=== PATIENT | male | born 1990 | race Caucasian/White ===

== ENCOUNTER 2016-12-01 12:26 | Emergency (ER) | payer SELFPAY ==
--- NOTE | 2016-12-01 15:28 | ED CLINICAL REPORT ---
Clinical Report - Physicians/Mid Levels [facility] [address] [place] [address] 12/01/2016 12:29 Patient: REAGAN PERES III Time Seen: 12:42; initial patient contact, initial documentation, patient care assumed. Arrived- By private vehicle. Historian- patient. HISTORY OF PRESENT ILLNESS Chief Complaint: SKIN RASH and TENDER AREA. This started about 2 days ago and is still present. Not itchy or burning. It is described as painful. It has been located on the right foot. A possible cause has been identified (iv drug user, but denies shooting up in that area). Similar symptoms previously: None. Recent medical care: Not recently seen/assessed. REVIEW OF SYSTEMS No fever, chills, difficulty breathing or joint pain. All systems otherwise negative, except as recorded above. PAST HISTORY Negative. SOCIAL HISTORY Light tobacco smoker. Occasional alcohol use. History of heavy IV drug use: heroin. Recently used drugs today. Under influence in ED. No recent travel. Is a local resident. FAMILY HISTORY Negative. ADDITIONAL NOTES The nursing notes have been reviewed with agreement regarding the chief complaint, HPI, ROS, PMH and patient medications and allergies. PHYSICAL EXAM Vital Signs: 12/01/2016 12:38 BP: 133/78. HR: 105. RR: 18. O2 saturation: 100%. Temp: 99 F. Pain level now: 8/10. Have been reviewed as abnormal and appear to be correct. Blood pressure normal. Tachycardic. Respiratory rate normal. Temperature normal. Oxygen saturation normal. Appearance: Alert. Oriented X3. No acute distress. Eyes: Pupils equal, round and reactive to light. Conjunctivae and eyelids normal. Neck: Neck supple. CVS: Heart rate / rhythm abnormal. Tachycardia (110). Heart sounds normal. Respiratory: No respiratory distress. Breath sounds normal. Chest nontender. Abdomen: Nontender. No organomegaly. Skin: Skin warm and dry. Abnormal skin color. No rash. Normal skin turgor. Medium area of cellulitis with tenderness, erythema and warmth to right ankle and right foot. No lymphangitis. Extremities: Normal external inspection. Extremities nontender. Neuro: Oriented X 3. No motor deficit. No sensory deficit. LABS, X-RAYS, AND EKG Laboratory Tests: CBC w Diff: (ANANTH: 12/01/2016 14:25) ( [facility] 12/01/2016 14:35) Final results Test Result Flag Units (Reference) WHITE BLOOD COUNT 9.0 K/uL (4.5-11.5) RED BLOOD COUNT 4.20 L M/uL (4.50-5.90) HEMOGLOBIN 11.6 L gm/dL (13.5-17.5) HEMATOCRIT 34.6 L % (41.0-53.0) MEAN CELL VOLUME 82 fL (80-100) MEAN CORPUSCULAR HGB 28 pg (26-34) MEAN CORPUSCULAR HGB CONC 34 g/dL (31-37) RED CELL DISTRIBUTION WIDTH 14.4 % (11.6-14.8) PLATELET COUNT 357 K/uL (150-400) NEUTROPHIL % 63.9 % (50-75) LYMPH % 26.8 % (25-40) MONO % 7.6 % (3-14) EOSINOPHIL % 1.4 % (0-4) BASOPHIL % 0.3 % (0-2) Lactate, Serum: (ANANTH: 12/01/2016 14:25) ( [facility] 12/01/2016 15:06) Final results Test Result Flag Units (Reference) LACTIC ACID 0.4 mmol/L (0.4-2.0) [id number]: (ANANTH: 12/01/2016 14:25) ( [facility] 12/01/2016 15:17) Final results Test Result Flag Units (Reference) PROCALCITONIN <0.5 ng/mL (0-0.5) PCT Concentration: Interpretation : Risk/option for action PCT <=0.5 ng/mL : Systemic : Low risk forinfection(sepsis): progression to severeis not likely. : systemic infection.Local bacterial : CAUTION-PCT levelsinfection is : below 0.5 ng/mL do notpossible. : exclude an infection,because localizedinfections (withoutsystemic signs) may beassociated with suchlow levels. If PCT ismeasured very earlyafter a bacterialchallenge (usually <6hours), these valuesmay still be low. Inthis case PCT shouldbe re-assessed 6-24hours later. PCT >0.5 and : Systemic infection: Moderate risk for<= 2 ng/mL : (sepsis) is : progression to severepossible, but : systemic infection.other conditions : The patient should beare known to : closely monitoredelevate PCT. : both clinically andby re-assessing PCTwithin 6-24 hours. PCT > 2 ng/mL : Systemic infection: High risk for(sepsis) is likely: progression to severeunless other : systemic infection.causes are known. : PCT >= 10 ng/mL : Important systemic: High likelihood ofinflammatory : severe sepsis orresponse, almost : septic shock.exclusively due to:severe bacterial :sepsis or septic :shock. : CMP: (ANANTH: 12/01/2016 14:25) ( MsgRcvd 12/01/2016 15:03) Final results Test Result Flag Units (Reference) GLUCOSE 94 mg/dL (70-110) BUN 12 mg/dL (7-18) CREATININE 0.8 mg/dL (0.6-1.3) Estimated GFR >60 mL/min Estimated GFR- >60 mL/min Note: Persistent reduction over 3 months in eGFR<60 mL/min/1.73 m2 defines CKD. Patients with eGFR values>=60 mL/min/1.73 m2 may also have CKD if evidence ofpersistent proteinuria. Additional information may be foundat www.kidney.org. SODIUM 139 mmol/L (136-145) POTASSIUM 3.9 mmol/L (3.5-5.1) CHLORIDE 101 mmol/L (98-107) CARBON DIOXIDE 28 mmol/L (21-32) CALCIUM 8.7 mg/dL (8.5-10.1) TOTAL PROTEIN 7.1 g/dL (6.4-8.2) ALBUMIN 3.6 g/dL (3.3-5.0) BILIRUBIN, TOTAL 0.5 mg/dL (0.0-1.0) ALKALINE PHOSPHATASE 68 U/L (46-116) AST (SGOT) 17 U/L (15-37) ALT (SGPT) 31 U/L (12-78) . PROGRESS AND PROCEDURES Venipuncture: Performed by me. Indication: physician procedure / others were unable to perform. Specimen obtained using an 22 gauge syringe; post-procedure pressure held by nurse and no bleeding present; specimen labeled in the presence of the patient and sent to lab. Arterial stick done, R Radial artery, + david test prior. Course of Care: nurses and lab having no success at iv or blood draw, at bedside, agreed to attempt arterial stick. Patient counseled in person regarding the patient's stable condition, test results and diagnosis. 15:22. Differential Diagnosis: Other possible considerations: cellulitis, abscess, mrsa, substance abuse, fungus. Above considerations are based on history and physical exam. Differential diagnosis was discussed with patient. Disposition: Discharged home in good and improved condition (15:28). Condition: good and stable. CLINICAL IMPRESSION Cellulitis of the right foot. Chronic substance abuse- heroin with intoxication. INSTRUCTIONS Warnings: GENERAL WARNINGS: Return or contact your physician immediately if your condition worsens or changes unexpectedly, if not improving as expected, or if other problems arise. Specifically return if problem worsens. Prescription Medications: Bactrim DS 800 mg / 160 mg: take 1 tablet orally every 12 hours for 10 days. No refill. Motrin 800 mg tablets: take 1 tablet orally every 8 hours as needed for pain. Dispense thirty (30). No refills. Substitution is permissible. Keflex 500 mg: take 1 capsule orally every 12 hours for 10 days. No refill. Follow-up: Follow up with your doctor in about two days even if well. Call for an appointment. Summary of care provided to patient. Understanding of the discharge instructions verbalized by patient. (Electronically signed by Merari Monaco A.R.N.P. 12/01/2016 17:33)
--- NOTE | 2016-12-01 15:28 | ED ORDER SUMMARY ---
..... Patient: REAGAN PERES III OrderSheet [facility] VisitID: [id number] [place] [address] 26y, M Registration Date/Time: 12/01/2016 ORDER SHEET Weight: 65.7 kg (stated) Allergies: No Known Drug Allergy GENERAL ORDERS: Blood Culture (No) (N/A) Urgent (13:53 12/01/2016 HBivens A.R.N.P.) (Ack 13:59 TBergley) (14:38 MWinterer R.N.) CBC w Diff Urgent (13:53 12/01/2016 HBivens A.R.N.P.) (Ack 13:59 TBergley) (14:38 MWinterer R.N.) CMP Urgent (13:53 12/01/2016 HBivens A.R.N.P.) (Ack 13:59 TBergley) (14:38 MWinterer R.N.) Lactate, Serum Urgent (13:53 12/01/2016 HBivens A.R.N.P.) (Ack 13:59 TBergley) (14:38 MWinterer R.N.) PCT (Procalcitonin) Urgent (13:53 12/01/2016 HBivens A.R.N.P.) (Ack 13:59 TBergley) (14:38 MWinterer R.N.) - (please jose alfredo area of erythema with skin pen) (15:29 12/01/2016 HBivens A.R.N.P.) (15:35 MWinterer R.N.) MEDICATION ORDERS: Toradol IM 60 mg (NOW) (15:21 12/01/2016 HBivens A.R.N.P.) (Ack 15:23 MWinterer R.N.) (15:35 MWinterer R.N.) Clindamycin IM 600 mg (NOW) (15:22 12/01/2016 HBivens A.R.N.P.) (Ack 15:23 MWinterer R.N.) (15:35 MWinterer R.N.) IV FLUIDS: IV Saline Lock (13:53 12/01/2016 HBivens A.R.N.P.) (Ack 13:55 MWinterer R.N.) (Cancelled: Other15:23 MWinterer R.N.) ORDER SHEET NOTES: [Electronically signed by Mervat White R.N. (17:08 12/01/2016)] [Electronically signed by Merari MonacoR.N.PAna (17:33 12/01/2016)] [Electronically locked/signed by Mervat White R.N. (17:08 12/01/2016)]
--- NOTE | 2016-12-01 15:28 | ED NURSING NOTES ---
Clinical Report - Nurses [facility] [address] [place] [address] 12/01/2016 12:29 Patient: REAGAN PERES III TRIAGE Acuity: LEVEL 3. Chief Complaint: RIGHT LOWER EXTREMITY PAIN, SWELLING and REDNESS. Alert. No acute distress. SEPSIS SCREEN: Sepsis Screen. Negative (no infection suspected/documented). --12:42 Mervat White R.N. 12:38 12/01/16. BP: 133/78. HR: 105. RR: 18. O2 saturation: 100% on room air. Temp: 99 F (oral). Pain level now: 8. --12:42 Mervat White R.N. Weight: 65.7 kg stated. Height/Length: 67 inches Per Patient. BMI: 22.7. --12:42 Mervat White R.N. Medications None. --12:38 Mervat White R.N. Medication/allergy information source: the patient. --12:42 Mervat White R.N. Allergies No Known Drug Allergy. --12:38 Mervat White R.N. History Arrived by private vehicle. Historian: patient. Accompanied by mother. Primary physician (none). No injury occurred. This occurred (2 days ago). He has had trouble walking. 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 PAST MEDICAL HX: Immunizations: up-to-date. SOCIAL HX: Current every day light tobacco smoker (cigarette)- less than 1/2 a pack per day. History of drug use: heroin. Recently used drugs just prior to arrival. No alcohol use. FALL RISK ASSESSMENT: Fall risk assessment completed. No fall risk identified. NUTRITIONAL RISK ASSESSMENT: The nutritional risk assessment revealed no deficiencies. FUNCTIONAL ASSESSMENT: Functional assessment: no impairments noted. LEARNING NEEDS ASSESSMENT: The learning needs assessment revealed no barriers. SKIN INTEGRITY ASSESSMENT: Skin integrity risk assessment completed. No skin integrity risk identified. --12:42 Mervat White R.N. Assessment GENERAL / NEURO / PSYCH: Alert. Oriented X 4. Appears in no acute distress. [place] Scale: 15- eyes open spontaneously (4); best verbal response- oriented x 4 (5); best motor response- obeys commands (6). Patient appears calm and cooperative. CVS: Capillary refill less than 2 seconds. GI / : Abdomen nontender. SKIN: Mucous membranes are pink. Skin is warm and dry. --12:42 Mervat White R.N. Interventions ID band on patient. To treatment room. --12:42 Mervat White R.N. NURSING PROGRESS NOTES Patient gowned. Two patient identifiers checked. Call light placed in reach. Side rails up x 1. Bed placed in lowest position. Brakes of bed on. Patient ready for evaluation- chart flagged and ED physician and BUTCHER'S ASSISTANT notified. --12:42 Mervat White R.N. 13:58 12/01/16. ( Multiple unsuccessful IV start attempts by two RNs, including US attempts. BUTCHER'S ASSISTANT notified. Will have lab draw labs.). --13:58 Mervat White R.N. 13:58 12/01/16. The patient reports no complaints and he is calm and resting quietly. --13:58 Mervat White R.N. 14:42 12/01/16. BP: 111/64. HR: 98. RR: 16. O2 saturation: 100%. Temp: 98.7 F (oral). --14:43 Mervat White R.N. 14:43 12/01/16. The patient reports no complaints and he is calm and resting quietly. --14:43 Mervat White R.N. 15:35 12/01/2016 Toradol (Ketorolac Tromethamine) IM 60 mg given. Given in the right gluteus kathy. Allergies verified and confirmed 5 rights. --15:35 Mervat White R.N. 15:35 12/01/2016 Clindamycin IM 600 mg given. Given in the right anterior lateral thigh and left gluteus kathy (split dose). Allergies verified and confirmed 5 rights. --15:35 Mervat White R.N. DISPOSITION / DISCHARGE 15:35 04/15/17. BP: 124/83. HR: 101. RR: 12. O2 saturation: 100%. Temp: 98.7 F (oral). Pain level now: 11/26. --15:36 Mervat White R.N. Departure time: 15:40 Dec 01 2016. Condition at departure: improved and stable. No learning barriers present. Discharge instructions provided and reviewed with the patient. Reviewed medication(s) side effects, precautions and dosing information. Prescription(s) given to the patient. Patient and parent verbalized understanding. Written instructions provided in Algerian. The patient was discharged by the nurse practitioner. He was discharged home and accompanied by parent. He left the Emergency Department ambulatory and via private vehicle. Parent driving. --17:07 Mervat White R.N. Reviewed skin care instructions. --17:08 Mervat White R.N. Locked/Released at 12/01/2016 17:08 by Mervat White R.N.
--- NOTE | 2016-12-01 15:28 | ED CLINICAL REPORT ---
Clinical Report - Physicians/Mid Levels [facility] [address] [place] [address] 12/01/2016 12:29 Patient: REAGAN PERES III Time Seen: 12:42; initial patient contact, initial documentation, patient care assumed. Arrived- By private vehicle. Historian- patient. HISTORY OF PRESENT ILLNESS Chief Complaint: SKIN RASH and TENDER AREA. This started about 2 days ago and is still present. Not itchy or burning. It is described as painful. It has been located on the right foot. A possible cause has been identified (iv drug user, but denies shooting up in that area). Similar symptoms previously: None. Recent medical care: Not recently seen/assessed. REVIEW OF SYSTEMS No fever, chills, difficulty breathing or joint pain. All systems otherwise negative, except as recorded above. PAST HISTORY Negative. SOCIAL HISTORY Light tobacco smoker. Occasional alcohol use. History of heavy IV drug use: heroin. Recently used drugs today. Under influence in ED. No recent travel. Is a local resident. FAMILY HISTORY Negative. ADDITIONAL NOTES The nursing notes have been reviewed with agreement regarding the chief complaint, HPI, ROS, PMH and patient medications and allergies. PHYSICAL EXAM Vital Signs: 12/01/2016 12:38 BP: 133/78. HR: 105. RR: 18. O2 saturation: 100%. Temp: 99 F. Pain level now: 8/10. Have been reviewed as abnormal and appear to be correct. Blood pressure normal. Tachycardic. Respiratory rate normal. Temperature normal. Oxygen saturation normal. Appearance: Alert. Oriented X3. No acute distress. Eyes: Pupils equal, round and reactive to light. Conjunctivae and eyelids normal. Neck: Neck supple. CVS: Heart rate / rhythm abnormal. Tachycardia (110). Heart sounds normal. Respiratory: No respiratory distress. Breath sounds normal. Chest nontender. Abdomen: Nontender. No organomegaly. Skin: Skin warm and dry. Abnormal skin color. No rash. Normal skin turgor. Medium area of cellulitis with tenderness, erythema and warmth to right ankle and right foot. No lymphangitis. Extremities: Normal external inspection. Extremities nontender. Neuro: Oriented X 3. No motor deficit. No sensory deficit. LABS, X-RAYS, AND EKG Laboratory Tests: CBC w Diff: (ANANTH: 12/01/2016 14:25) ( [facility] 12/01/2016 14:35) Final results Test Result Flag Units (Reference) WHITE BLOOD COUNT 9.0 K/uL (4.5-11.5) RED BLOOD COUNT 4.20 L M/uL (4.50-5.90) HEMOGLOBIN 11.6 L gm/dL (13.5-17.5) HEMATOCRIT 34.6 L % (41.0-53.0) MEAN CELL VOLUME 82 fL (80-100) MEAN CORPUSCULAR HGB 28 pg (26-34) MEAN CORPUSCULAR HGB CONC 34 g/dL (31-37) RED CELL DISTRIBUTION WIDTH 14.4 % (11.6-14.8) PLATELET COUNT 357 K/uL (150-400) NEUTROPHIL % 63.9 % (50-75) LYMPH % 26.8 % (25-40) MONO % 7.6 % (3-14) EOSINOPHIL % 1.4 % (0-4) BASOPHIL % 0.3 % (0-2) Lactate, Serum: (ANANTH: 12/01/2016 14:25) ( [facility] 12/01/2016 15:06) Final results Test Result Flag Units (Reference) LACTIC ACID 0.4 mmol/L (0.4-2.0) [id number]: (ANANTH: 12/01/2016 14:25) ( [facility] 12/01/2016 15:17) Final results Test Result Flag Units (Reference) PROCALCITONIN <0.5 ng/mL (0-0.5) PCT Concentration: Interpretation : Risk/option for action PCT <=0.5 ng/mL : Systemic : Low risk forinfection(sepsis): progression to severeis not likely. : systemic infection.Local bacterial : CAUTION-PCT levelsinfection is : below 0.5 ng/mL do notpossible. : exclude an infection,because localizedinfections (withoutsystemic signs) may beassociated with suchlow levels. If PCT ismeasured very earlyafter a bacterialchallenge (usually <6hours), these valuesmay still be low. Inthis case PCT shouldbe re-assessed 6-24hours later. PCT >0.5 and : Systemic infection: Moderate risk for<= 2 ng/mL : (sepsis) is : progression to severepossible, but : systemic infection.other conditions : The patient should beare known to : closely monitoredelevate PCT. : both clinically andby re-assessing PCTwithin 6-24 hours. PCT > 2 ng/mL : Systemic infection: High risk for(sepsis) is likely: progression to severeunless other : systemic infection.causes are known. : PCT >= 10 ng/mL : Important systemic: High likelihood ofinflammatory : severe sepsis orresponse, almost : septic shock.exclusively due to:severe bacterial :sepsis or septic :shock. : CMP: (ANANTH: 12/01/2016 14:25) ( MsgRcvd 12/01/2016 15:03) Final results Test Result Flag Units (Reference) GLUCOSE 94 mg/dL (70-110) BUN 12 mg/dL (7-18) CREATININE 0.8 mg/dL (0.6-1.3) Estimated GFR >60 mL/min Estimated GFR- >60 mL/min Note: Persistent reduction over 3 months in eGFR<60 mL/min/1.73 m2 defines CKD. Patients with eGFR values>=60 mL/min/1.73 m2 may also have CKD if evidence ofpersistent proteinuria. Additional information may be foundat www.kidney.org. SODIUM 139 mmol/L (136-145) POTASSIUM 3.9 mmol/L (3.5-5.1) CHLORIDE 101 mmol/L (98-107) CARBON DIOXIDE 28 mmol/L (21-32) CALCIUM 8.7 mg/dL (8.5-10.1) TOTAL PROTEIN 7.1 g/dL (6.4-8.2) ALBUMIN 3.6 g/dL (3.3-5.0) BILIRUBIN, TOTAL 0.5 mg/dL (0.0-1.0) ALKALINE PHOSPHATASE 68 U/L (46-116) AST (SGOT) 17 U/L (15-37) ALT (SGPT) 31 U/L (12-78) . PROGRESS AND PROCEDURES Venipuncture: Performed by me. Indication: physician procedure / others were unable to perform. Specimen obtained using an 22 gauge syringe; post-procedure pressure held by nurse and no bleeding present; specimen labeled in the presence of the patient and sent to lab. Arterial stick done, R Radial artery, + david test prior. Course of Care: nurses and lab having no success at iv or blood draw, at bedside, agreed to attempt arterial stick. Patient counseled in person regarding the patient's stable condition, test results and diagnosis. 15:22. Differential Diagnosis: Other possible considerations: cellulitis, abscess, mrsa, substance abuse, fungus. Above considerations are based on history and physical exam. Differential diagnosis was discussed with patient. Disposition: Discharged home in good and improved condition (15:28). Condition: good and stable. CLINICAL IMPRESSION Cellulitis of the right foot. Chronic substance abuse- heroin with intoxication. INSTRUCTIONS Warnings: GENERAL WARNINGS: Return or contact your physician immediately if your condition worsens or changes unexpectedly, if not improving as expected, or if other problems arise. Specifically return if problem worsens. Prescription Medications: Bactrim DS 800 mg / 160 mg: take 1 tablet orally every 12 hours for 10 days. No refill. Motrin 800 mg tablets: take 1 tablet orally every 8 hours as needed for pain. Dispense thirty (30). No refills. Substitution is permissible. Keflex 500 mg: take 1 capsule orally every 12 hours for 10 days. No refill. Follow-up: Follow up with your doctor in about two days even if well. Call for an appointment. Summary of care provided to patient. Understanding of the discharge instructions verbalized by patient. (Electronically signed by Merari Monaco A.R.N.P. 12/01/2016 17:33)
--- NOTE | 2016-12-01 15:28 | ED ORDER SUMMARY ---
..... Patient: REAGAN PERES III OrderSheet [facility] VisitID: [id number] [place] [address] 26y, M Registration Date/Time: 12/01/2016 ORDER SHEET Weight: 65.7 kg (stated) Allergies: No Known Drug Allergy GENERAL ORDERS: Blood Culture (No) (N/A) Urgent (13:53 12/01/2016 HBivens A.R.N.P.) (Ack 13:59 TBergley) (14:38 MWinterer R.N.) CBC w Diff Urgent (13:53 12/01/2016 HBivens A.R.N.P.) (Ack 13:59 TBergley) (14:38 MWinterer R.N.) CMP Urgent (13:53 12/01/2016 HBivens A.R.N.P.) (Ack 13:59 TBergley) (14:38 MWinterer R.N.) Lactate, Serum Urgent (13:53 12/01/2016 HBivens A.R.N.P.) (Ack 13:59 TBergley) (14:38 MWinterer R.N.) PCT (Procalcitonin) Urgent (13:53 12/01/2016 HBivens A.R.N.P.) (Ack 13:59 TBergley) (14:38 MWinterer R.N.) - (please jose alfredo area of erythema with skin pen) (15:29 12/01/2016 HBivens A.R.N.P.) (15:35 MWinterer R.N.) MEDICATION ORDERS: Toradol IM 60 mg (NOW) (15:21 12/01/2016 HBivens A.R.N.P.) (Ack 15:23 MWinterer R.N.) (15:35 MWinterer R.N.) Clindamycin IM 600 mg (NOW) (15:22 12/01/2016 HBivens A.R.N.P.) (Ack 15:23 MWinterer R.N.) (15:35 MWinterer R.N.) IV FLUIDS: IV Saline Lock (13:53 12/01/2016 HBivens A.R.N.P.) (Ack 13:55 MWinterer R.N.) (Cancelled: Other15:23 MWinterer R.N.) ORDER SHEET NOTES: [Electronically signed by Mervat White R.N. (17:08 12/01/2016)] [Electronically signed by Merari MonacoR.N.PAna (17:33 12/01/2016)] [Electronically locked/signed by Mervat White R.N. (17:08 12/01/2016)]
--- NOTE | 2016-12-01 15:28 | ED NURSING NOTES ---
Clinical Report - Nurses [facility] [address] [place] [address] 12/01/2016 12:29 Patient: REAGAN PERES III TRIAGE Acuity: LEVEL 3. Chief Complaint: RIGHT LOWER EXTREMITY PAIN, SWELLING and REDNESS. Alert. No acute distress. SEPSIS SCREEN: Sepsis Screen. Negative (no infection suspected/documented). --12:42 Mervat White R.N. 12:38 12/01/16. BP: 133/78. HR: 105. RR: 18. O2 saturation: 100% on room air. Temp: 99 F (oral). Pain level now: 8. --12:42 Mervat White R.N. Weight: 65.7 kg stated. Height/Length: 67 inches Per Patient. BMI: 22.7. --12:42 Mervat White R.N. Medications None. --12:38 Mervat White R.N. Medication/allergy information source: the patient. --12:42 Mervat White R.N. Allergies No Known Drug Allergy. --12:38 Mervat White R.N. History Arrived by private vehicle. Historian: patient. Accompanied by mother. Primary physician (none). No injury occurred. This occurred (2 days ago). He has had trouble walking. Treatment [employer]: Took Benadryl. PAST MEDICAL HX: Immunizations: up-to-date. SOCIAL HX: Current every day light tobacco smoker (cigarette)- less than 1/2 a pack per day. History of drug use: heroin. Recently used drugs just prior to arrival. No alcohol use. FALL RISK ASSESSMENT: Fall risk assessment completed. No fall risk identified. NUTRITIONAL RISK ASSESSMENT: The nutritional risk assessment revealed no deficiencies. FUNCTIONAL ASSESSMENT: Functional assessment: no impairments noted. LEARNING NEEDS ASSESSMENT: The learning needs assessment revealed no barriers. SKIN INTEGRITY ASSESSMENT: Skin integrity risk assessment completed. No skin integrity risk identified. --12:42 Mervat White R.N. Assessment GENERAL / NEURO / PSYCH: Alert. Oriented X 4. Appears in no acute distress. [place] Coma Scale: 15- eyes open spontaneously (4); best verbal response- oriented x 4 (5); best motor response- obeys commands (6). Patient appears calm and cooperative. CVS: Capillary refill less than 2 seconds. GI / : Abdomen nontender. SKIN: Mucous membranes are pink. Skin is warm and dry. --12:42 Mervat White R.N. Interventions ID band on patient. To treatment room. --12:42 Mervat White R.N. NURSING PROGRESS NOTES Patient gowned. Two patient identifiers checked. Call light placed in reach. Side rails up x 1. Bed placed in lowest position. Brakes of bed on. Patient ready for evaluation- chart flagged and ED physician and CYTOLOGIST notified. --12:42 Mervat White R.N. 13:58 12/01/16. ( Multiple unsuccessful IV start attempts by two RNs, including US attempts. CYTOLOGIST notified. Will have lab draw labs.). --13:58 Mervat White R.N. 13:58 12/01/16. The patient reports no complaints and he is calm and resting quietly. --13:58 Mervat White R.N. 14:42 12/01/16. BP: 111/64. HR: 98. RR: 16. O2 saturation: 100%. Temp: 98.7 F (oral). --14:43 Mervat White R.N. 14:43 12/01/16. The patient reports no complaints and he is calm and resting quietly. --14:43 Mervat White R.N. 15:35 12/01/2016 Toradol (Ketorolac Tromethamine) IM 60 mg given. Given in the right gluteus kathy. Allergies verified and confirmed 5 rights. --15:35 Mervat White R.N. 15:35 12/01/2016 Clindamycin IM 600 mg given. Given in the right anterior lateral thigh and left gluteus kathy (split dose). Allergies verified and confirmed 5 rights. --15:35 Mervat White R.N. DISPOSITION / DISCHARGE 15:35 04/15/17. BP: 124/83. HR: 101. RR: 12. O2 saturation: 100%. Temp: 98.7 F (oral). Pain level now: 11/26. --15:36 Mervat White R.N. Departure time: 15:40 Dec 01 2016. Condition at departure: improved and stable. No learning barriers present. Discharge instructions provided and reviewed with the patient. Reviewed medication(s) side effects, precautions and dosing information. Prescription(s) given to the patient. Patient and parent verbalized understanding. Written instructions provided in [place]. The patient was discharged by the nurse practitioner. He was discharged home and accompanied by parent. He left the Emergency Department ambulatory and via private vehicle. Parent driving. --17:07 Mervat White R.N. Reviewed skin care instructions. --17:08 Mervat White R.N. Locked/Released at 12/01/2016 17:08 by Mervat White R.N.
--- NOTE | 2016-12-01 17:33 | ED MAR SUMMARY ---
..... Medication Administration Record [facility] [address] [address] Patient: REAGAN PERES Visit ID: [id number] 26y, M Weight: 65.7 kg Height/Length: 67 in BMI: 22.7 ALLERGIES: No Known Drug Allergy Given 15:12/01/2016 Mervat White, R.N. Medication Administered: TORADOL [IM] (KETOROLAC TROMETHAMINE), Dose: 60 mg IM. Medication Ordered: Toradol IM 60 mg (NOW). Given 15:12/01/2016 Mervat White, R.N. Medication Administered: CLINDAMYCIN [IM], Dose: 600 mg IM. Medication Ordered: Clindamycin IM 600 mg (NOW).
--- NOTE | 2016-12-01 17:33 | ED MED RECONCILIATION SUMMARY ---
Patient: REAGAN PERES III Medication Reconciliation Report [facility] VisitID: [id number] [place] [address] 26y, M Registration Date/Time: 12/01/2016 Weight: 65.7 kg Height/Length: 67 in. BMI: 22.7 ALLERGIES: No Known Drug Allergy The patient's Home Medications are listed below: NONE. The source(s) of the original Home Medication information: patient The following Medications were given to the patient in the Emergency Department: Toradol [IM] IM 60 mg, administered: 12/01/2016 3:35:00 PM Clindamycin [IM] IM 600 mg, administered: 12/01/2016 3:35:00 PM The following Medications were prescribed to the patient: Bactrim DS 800 mg / 160 mg: take 1 tablet orally every 12 hours for 10 days. No refill. -- Merari Monaco A.R.N.P. Motrin 800 mg tablets: take 1 tablet orally every 8 hours as needed for pain. Dispense thirty (30). No refills. Substitution is permissible. -- Merari Monaco A.R.N.P. Keflex 500 mg: take 1 capsule orally every 12 hours for 10 days. No refill. -- Merari Monaco A.R.N.P.
--- NOTE | 2016-12-01 17:33 | ED DISCHARGE INSTRUCTIONS ---
Patient: REAGAN PERES III General Instructions [facility] VisitID: [id number] [place] [address] 26y, M Registration Date/Time: 12/01/2016 Cellulitis of the right foot. Chronic substance abuse- heroin with intoxication. INSTRUCTIONS Warnings: GENERAL WARNINGS: Return or contact your physician immediately if your condition worsens or changes unexpectedly, if not improving as expected, or if other problems arise. Specifically return if problem worsens. Prescription Medications: Bactrim DS 800 mg / 160 mg: take 1 tablet orally every 12 hours for 10 days. No refill. Motrin 800 mg tablets: take 1 tablet orally every 8 hours as needed for pain. Dispense thirty (30). No refills. Substitution is permissible. Keflex 500 mg: take 1 capsule orally every 12 hours for 10 days. No refill. Follow-up: Follow up with your doctor in about two days even if well. Call for an appointment. Summary of care provided to patient. Understanding of the discharge instructions verbalized by patient. ADDITIONAL INFORMATION Cellulitis You have an infection of the skin known as cellulitis. This usually starts with a scrape, cut, insect bite, blister or other opening in the skin which becomes infected. This is a serious condition. It must be watched closely to be sure the infection is not spreading. With antibiotic treatment, the size of the red area will gradually shrink in size until the skin returns to normal. This will take 7-10 days. The red area should never increase in size once the antibiotic medicine has been started. Occasionally, an infection will be resistant to one antibiotic and another one will have to be used. Home Care: 1) Limit the use of the affected part, since excess movement can cause the infection to spread. 2) If the infection is on your leg, walk as little as possible during the first few days of the treatment. Keep your leg elevated while sitting. This will reduce swelling. 3) Take all of the antibiotic medicine exactly as directed until it is gone. Be careful not to miss any doses, especially during the first seven days. Follow Up with your doctor or this facility as directed. Check the infected area daily for the warning signs listed below. Get Prompt Medical Attention if any of the following occur: -- Spreading area of redness -- Increasing swelling or pain -- Appearance of pus or drainage -- Fever over 100.4 F (38.0 C) oral, or over 101.4 F (38.6 C) rectal, after two days on antibiotics Staph Infection (MRSA) "Staph" is the short name for the common bacteria called "staphylococcus aureus". Staph bacteria are often present on the skin without causing an infection. If it gets under the skin an infection occurs. This causes redness, tenderness, swelling and sometimes fluid drainage. MRSA stands for "Methicillin-Resistant Staph Aureus". Unlike a common staph infection, MRSA bacteria are resistant to the usual antibiotics and harder to treat. Also, MRSA is more toxic than common staph bacteria. It can spread quickly throughout the body and cause a life-threatening illness. MRSA is spread to others by direct physical contact with the bacteria. MRSA can also be transmitted from items contaminated by a person who has the bacteria, such as bandages, towels, bed sheets, or sports equipment. It is not spread through the air. Once you have a MRSA skin infection, you are at risk of having it recur in the future. If MRSA infection is suspected, the doctor may take a wound culture to confirm the diagnosis. Any abscess will be drained. One or sometimes two antibiotics that work against MRSA will be prescribed. Home Care: 1) Take any antibiotics prescribed exactly as directed until they are gone. 2) Follow the same washing procedures as outlined for Household Members below. 3) Keep draining wounds covered with clean, dry bandages. Change dressings as they become soiled. 4) You and those in contact with you should wash their hands frequently with soap and warm water or use an alcohol-based hand medical scientist. Do this after each time you change the bandage or touch the wound. 5) Avoid sharing personal items such as towels, washcloths, razors, clothing, or uniforms. Wash soiled sheets, towels or clothes in hot water with laundry detergent. Use an automatic clothes dryer set on high to kill any remaining bacteria. 6) Remove any artificial nails and nail romansh. 7) If you use a gym, wipe down equipment before and after each use. Treatment Of Household Members If you have been diagnosed with possible MRSA infection, those living with you are at higher risk of carrying the bacteria on their skin or in their nose, even if there is no sign of infection. Bacteria must be removed from the skin of all household members (including you) at the same time, so that it is not passed back and forth. Advise them to remove the bacteria as follows: Wash your whole body (scalp to toes) daily for five days with Hibiclens (chlorhexidine). Scrub fingernails with a brush for one minute twice a day. If any skin infections are present (boils, abscess, infected cut) these must be treated by a doctor. Washing alone will not treat a MRSA infection. Clean counter tops and children's toys; do not share personal items such as toothbrush and razors. It is okay to share glasses, plates, utensils. If antibiotic ointment was prescribed use it as directed. Follow Up with your doctor or as advised by our staff. If a wound culture was taken, call as directed in two days to obtain the results. If the culture result is positive for MRSA, tell medical personnel in the future that you were treated for this type of infection. Get Prompt Medical Attention if any of the following occur: -- Increasing redness, swelling or pain -- Red streaks in the skin around the wound -- Weakness or dizziness -- New appearance of pus or drainage from the wound -- New fever over 100.4 F (38.0 C) Drug Abuse Use and abuse of such drugs as marijuana, amphetamines (speed, crank), cocaine, heroin or prescription pain medicines (Vicodin, codeine), sedatives and sleeping pills (Valium, Klonopin), PCP, mescaline and LSD may lead to addiction or dependence. Once this occurs, you are at greater risk for any of the following: Craving for the drug and unable to stop using the drug even though you think you want to stop (psychological dependence) Drug withdrawal symptoms if you stop taking the drug (physical dependence) Loss of your job or your family Arrest, conviction and fci sentence for possession of an illegal substance or for driving under the influence of such a substance Accidental injuries to yourself or others while you are under the influence of the drug (in a car or at home). HIV infection (much greater risk if you use IV drugs) Other sexually transmitted diseases (herpes, chlamydia, gonorrhea and others) Severe and fatal infection of the heart valves (if you use IV drugs) Stroke, heart attack, hepatitis B or C, kidney failure from overdose Home Care: Admit you have a drug problem. Ask for help from your family and close friends. Seek professional help. This could be in the form of individual psychotherapy or counseling or an outpatient, inpatient, or residential drug treatment program. Join a self-help group for drug abuse. Avoid friends who abuse drugs themselves or tempt you to continue abusing drugs. Eat a balanced diet and begin a regular exercise program. Follow Up with your doctor or as advised by our staff. Contact one of the resources below for help. National [place] on Alcoholism and Drug Dependence www.ncadd.org 088-221-DSVG Narcotics Anonymous www.I-lighting.org 448-253-5199 [employer] Alcohol and Substance Abuse Information Center (for referral to treatment programs) www.[employer] 284-999-7275 Get Prompt Medical Attention if any of the following occur: Agitation, anxiety, unable to sleep Unintended weight loss (more than 10 to 15 pounds over 3 months) Seizure Chest pain Fever of 100.4F (38C) or higher, or as directed by your healthcare provider Excess drowsiness or inability to be awakened Shortness of breath Slow breathing under 8 breaths per minute Cough with colored sputum Redness, swelling or tenderness at an injection site Sulfamethoxazole, Trimethoprim Oral tablet What is this medicine? SULFAMETHOXAZOLE; TRIMETHOPRIM or SMX-TMP (suhl fuh meth OK arvin zohl; trye METH oh prim) is a combination of a sulfonamide antibiotic and a second antibiotic, trimethoprim. It is used to treat or prevent certain kinds of bacterial infections. It will not work for colds, flu, or other viral infections. How should I use this medicine? Take this medicine by mouth with a full glass of water. Follow the directions on the prescription label. Take your medicine at regular intervals. Do not take it more often than directed. Do not skip doses or stop your medicine early. Talk to your workers compensation claims examiner regarding the use of this medicine in children. Special care may be needed. This medicine has been used in children as young as 2 months of age. What side effects may I notice from receiving this medicine? Side effects that you should report to your doctor or health patient care representative as soon as possible: allergic reactions like skin rash or hives, swelling of the face, lips, or tongue breathing problems fever or chills, sore throat irregular heartbeat, chest pain joint or muscle pain pain or difficulty passing urine red pinpoint spots on skin redness, blistering, peeling or loosening of the skin, including inside the mouth unusual bleeding or bruising unusually weak or tired yellowing of the eyes or skin Side effects that usually do not require medical attention (report to your doctor or health patient care representative if they continue or are bothersome): diarrhea dizziness headache loss of appetite nausea, vomiting nervousness What may interact with this medicine? Do not take this medicine with any of the following medications: aminobenzoate potassium dofetilide metronidazole This medicine may also interact with the following medications: SAUL inhibitors like benazepril, enalapril, lisinopril, and ramipril cyclosporine digoxin diuretics indomethacin medicines for diabetes methenamine methotrexate phenytoin potassium supplements pyrimethamine sulfinpyrazone tricyclic antidepressants warfarin What if I miss a dose? If you miss a dose, take it as soon as you can. If it is almost time for your next dose, take only that dose. Do not take double or extra doses. Where should I keep my medicine? Keep out of the reach of children. Store at room temperature between 20 to 25 degrees C (68 to 77 degrees F). Protect from light. Throw away any unused medicine after the expiration date. What should I tell my health care provider before I take this medicine? They need to know if you have any of these conditions: anemia asthma being treated with anticonvulsants if you frequently drink alcohol containing drinks kidney disease liver disease low level of folic acid or [id number] dehydrogenase poor nutrition or malabsorption porphyria severe allergies thyroid disorder an unusual or allergic reaction to sulfamethoxazole, trimethoprim, sulfa drugs, other medicines, foods, dyes, or preservatives or trying to get breast-feeding What should I watch for while using this medicine? Tell your doctor or health patient care representative if your symptoms do not improve. Drink several glasses of water a day to reduce the risk of kidney problems. Do not treat diarrhea with over the counter products. Contact your doctor if you have diarrhea that lasts more than 2 days or if it is severe and watery. This medicine can make you more sensitive to the sun. Keep out of the sun. If you cannot avoid being in the sun, wear protective clothing and use a sunscreen. Do not use sun lamps or tanning beds/booths. Ibuprofen Oral tablet What is this medicine? IBUPROFEN (eye BYOO proe fen) is a non-steroidal anti-inflammatory drug (NSAID). It is used for dental pain, fever, headaches or migraines, osteoarthritis, rheumatoid arthritis, or painful monthly periods. It can also relieve minor aches and pains caused by a cold, flu, or sore throat. How should I use this medicine? Take this medicine by mouth with a glass of water. Follow the directions on the prescription label. Take this medicine with food if your stomach gets upset. Try to not lie down for at least 10 minutes after you take the medicine. Take your medicine at regular intervals. Do not take your medicine more often than directed. A special MedGuide will be given to you by the pharmacist with each prescription and refill. Be sure to read this information carefully each time. Talk to your workers compensation claims examiner regarding the use of this medicine in children. Special care may be needed. What side effects may I notice from receiving this medicine? Side effects that you should report to your doctor or health patient care representative as soon as possible: allergic reactions like skin rash, itching or hives, swelling of the face, lips, or tongue black or bloody stools, blood in the urine or in vomit breathing problems changes in vision chest pain general ill feeling or flu-like symptoms nausea or vomiting redness, blistering, peeling or loosening of the skin, including inside the mouth slurred speech or weakness on one side of the body stomach pain unexplained weight gain or swelling unusually weak or tired yellowing of eyes or skin Side effects that usually do not require medical attention (report to your doctor or health patient care representative if they continue or are bothersome): constipation or diarrhea dizziness gas or heartburn stomach upset What may interact with this medicine? Do not take this medicine with any of the following medications: cidofovir ketorolac methotrexate pemetrexed This medicine may also interact with the following medications: alcohol aspirin diuretics lithium other drugs for inflammation like prednisone warfarin What if I miss a dose? If you miss a dose, take it as soon as you can. If it is almost time for your next dose, take only that dose. Do not take double or extra doses. Where should I keep my medicine? Keep out of the reach of children. Store at room temperature between 15 and 30 degrees C (59 and 86 degrees F). Keep container tightly closed. Throw away any unused medicine after the expiration date. What should I tell my health care provider before I take this medicine? They need to know if you have any of these conditions: asthma cigarette smoker drink more than 3 alcohol containing drinks a day heart disease or circulation problems such as heart failure or leg edema (fluid retention) high blood pressure kidney disease liver disease stomach bleeding or ulcers an unusual or allergic reaction to ibuprofen, aspirin, other NSAIDS, other medicines, foods, dyes, or preservatives or trying to get breast-feeding What should I watch for while using this medicine? Tell your doctor or healthcare professional if your symptoms do not start to get better or if they get worse. This medicine does not prevent heart attack or stroke. In fact, this medicine may increase the chance of a heart attack or stroke. The chance may increase with longer use of this medicine and in people who have heart disease. If you take aspirin to prevent heart attack or stroke, talk with your doctor or health patient care representative. Do not take other medicines that contain aspirin, ibuprofen, or naproxen with this medicine. Side effects such as stomach upset, nausea, or ulcers may be more likely to occur. Many medicines available without a prescription should not be taken with this medicine. This medicine can cause ulcers and bleeding in the stomach and intestines at any time during treatment. Ulcers and bleeding can happen without warning symptoms and can cause . To reduce your risk, do not smoke cigarettes or drink alcohol while you are taking this medicine. You may get drowsy or dizzy. Do not drive, use machinery, or do anything that needs mental alertness until you know how this medicine affects you. Do not stand or sit up quickly, especially if you are an older patient. This reduces the risk of dizzy or fainting spells. This medicine can cause you to bleed more easily. Try to avoid damage to your teeth and gums when you brush or floss your teeth. Cephalexin Monohydrate Oral tablet What is this medicine? CEPHALEXIN (sef a CELESTINA in) is a cephalosporin antibiotic. It is used to treat certain kinds of bacterial infections It will not work for colds, flu, or other viral infections. How should I use this medicine? Take this medicine by mouth with a full glass of water. Follow the directions on the prescription label. This medicine can be taken with or without food. Take your medicine at regular intervals. Do not take your medicine more often than directed. Take all of your medicine as directed even if you think you are better. Do not skip doses or stop your medicine early. Talk to your workers compensation claims examiner regarding the use of this medicine in children. While this drug may be prescribed for selected conditions, precautions do apply. What side effects may I notice from receiving this medicine? Side effects that you should report to your doctor or health patient care representative as soon as possible: allergic reactions like skin rash, itching or hives, swelling of the face, lips, or tongue breathing problems pain or trouble passing urine redness, blistering, peeling or loosening of the skin, including inside the mouth severe or watery diarrhea unusually weak or tired yellowing of the eyes, skin Side effects that usually do not require medical attention (report to your doctor or health patient care representative if they continue or are bothersome): gas or heartburn genital or anal irritation headache joint or muscle pain nausea, vomiting What may interact with this medicine? probenecid some other antibiotics What if I miss a dose? If you miss a dose, take it as soon as you can. If it is almost time for your next dose, take only that dose. Do not take double or extra doses. There should be at least 4 to 6 hours between doses. Where should I keep my medicine? Keep out of the reach of children. Store at room temperature between 59 and 86 degrees F (15 and 30 degrees C). Throw away any unused medicine after the expiration date. What should I tell my health care provider before I take this medicine? They need to know if you have any of these conditions: kidney disease stomach or intestine problems, especially colitis an unusual or allergic reaction to cephalexin, other cephalosporins, penicillins, other antibiotics, medicines, foods, dyes or preservatives or trying to get breast-feeding What should I watch for while using this medicine? Tell your doctor or health patient care representative if your symptoms do not begin to improve in a few days. Do not treat diarrhea with over the counter products. Contact your doctor if you have diarrhea that lasts more than 2 days or if it is severe and watery. If you have diabetes, you may get a false-positive result for sugar in your urine. Check with your doctor or health patient care representative. You have been given the following additional information: Cellulitis MRSA Skin Infection, Suspected Or Confirmed Drug Abuse Sulfamethoxazole, Trimethoprim Oral tablet Ibuprofen Oral tablet Cephalexin Monohydrate Oral tablet (Electronically signed by Merari Monaco A.R.N.P. 12/01/2016 17:33)
--- NOTE | 2016-12-01 17:33 | ED MAR SUMMARY ---
..... Medication Administration Record [facility] [address] [facility] [facility] [place] [address] Patient: REAGAN PERES Visit ID: [id number] 26y, M Weight: 65.7 kg Height/Length: 67 in BMI: 22.7 ALLERGIES: No Known Drug Allergy Given 15:12/01/2016 Mervat White, R.N. Medication Administered: TORADOL [IM] (KETOROLAC TROMETHAMINE), Dose: 60 mg IM. Medication Ordered: Toradol IM 60 mg (NOW). Given 15:12/01/2016 Mervat White, R.N. Medication Administered: CLINDAMYCIN [IM], Dose: 600 mg IM. Medication Ordered: Clindamycin IM 600 mg (NOW).
--- NOTE | 2016-12-01 17:33 | ED MED RECONCILIATION SUMMARY ---
Patient: REAGAN PERES III Medication Reconciliation Report [facility] VisitID: [id number] [place] [address] 26y, M Registration Date/Time: 12/01/2016 Weight: 65.7 kg Height/Length: 67 in. BMI: 22.7 ALLERGIES: No Known Drug Allergy The patient's Home Medications are listed below: NONE. The source(s) of the original Home Medication information: patient The following Medications were given to the patient in the Emergency Department: Toradol [IM] IM 60 mg, administered: 12/01/2016 3:35:00 PM Clindamycin [IM] IM 600 mg, administered: 12/01/2016 3:35:00 PM The following Medications were prescribed to the patient: Bactrim DS 800 mg / 160 mg: take 1 tablet orally every 12 hours for 10 days. No refill. -- Merari Monaco A.R.N.P. Motrin 800 mg tablets: take 1 tablet orally every 8 hours as needed for pain. Dispense thirty (30). No refills. Substitution is permissible. -- Merari Monaco A.R.N.P. Keflex 500 mg: take 1 capsule orally every 12 hours for 10 days. No refill. -- Merari Monaco A.R.N.P.
== END 2016-12-01 15:40 | disposition home or self-care (01) ==
LOC: ED SRH 12:26
DX: L03.115 Cellulitis of right lower limb (principal); F11.129 Opioid abuse with intoxication, unspecified; F17.210 Nicotine dependence, cigarettes, uncomplicated
CPT/HCPCS: 90065; 90100; 92031; 93004; 95059